=== PATIENT | female | born 1935 | race Caucasian/White ===

== ENCOUNTER 2016-07-24 10:28 | Observation (INO) | payer MEDICARE, OTHER ==
[2016-07-23 09:57] VITALS: BP 138/79
[2016-07-23 10:56] LABS: BLOOD UREA NITROGEN 32 mg/dL (7-18)
[2016-07-23 10:59] LABS: ASPARTATE AMINO TRANSFERASE 16 U/L (15-37)
[~2016-07-24] VITALS: Ht 165.1 cm; Wt 59.3 kg
[~2016-07-24 10:28] MED LIST: APIX5TAB PO; ATOR20TA9 PO; DIGO125T PO; LATA2.5D3 EACHEYE; LEVO100T PO; LEVO75TA PO
[2016-07-24] MEDS ORDERED: FENTANYL PF 100 MCG/2ML ONE (12:08)
[2016-07-24] MEDS ORDERED: MIDAZOLAM 1 MG/ML, 5ML ONE (12:08)
[2016-07-24] MEDS ORDERED: CEFAZOLIN 1,000 MG ONE (12:08)
[2016-07-24] MEDS ORDERED: CEFAZOLIN PMX 1GM/50ML 0 ML ONE (12:08)
[2016-07-24] MEDS ORDERED: LIDOCAINE 2%, 20ML ONE (12:08)
[2016-07-24] MEDS ORDERED: VANCOMYCIN 500 MG ONE (12:11)
[2016-07-24] MEDS ORDERED: VANCOMYCIN PMX 1GM/200ML 200 ML ONE (12:11)
[2016-07-24] MEDS: SODIUM CHLORIDE 0.9% 1,000 ML IV SCH ×2 (15:20→16:35)
[2016-07-24] MEDS ORDERED: HYDROcodone/APAP 5/325 TABLET ONE (15:21)
[2016-07-24] MEDS: HYDROcodone/APAP 5/325 TABLET PO PRN ×3 (15:27→21:40)
[2016-07-24 18:33] VITALS: BP 104/65
[2016-07-24] MEDS ORDERED: LATANOPROST OPHTH 0.005%, 2.5ML OP SCH (21:00)
[2016-07-24] MEDS ORDERED: ATORVASTATIN 20 MG TABLET PO SCH (21:00)
[2016-07-24] MEDS: SODIUM CHLORIDE FLUSH 10ML SYR IVF SCH (21:26)
[2016-07-24] MEDS: APIXABAN 5 MG TABLET PO SCH (21:26)
[2016-07-24] MEDS ORDERED: VANCOMYCIN PMX 1GM/200ML 200 ML IVPB SCH (23:30)
[2016-07-25 01:23] VITALS: BP 146/81
[2016-07-25] MEDS: SODIUM CHLORIDE 0.9% 1,000 ML IV SCH ×2 (01:31→10:51)
[2016-07-25] MEDS ORDERED: LEVOTHYROXINE 75 MCG TABLET PO SCH (06:00)
[2016-07-25] MEDS ORDERED: HYDR-3240 PO (07:58)
[2016-07-25 08:57] VITALS: BP 148/87
[2016-07-25] MEDS ORDERED: DIGOXIN 0.125 MG TABLET PO SCH (09:00)
[2016-07-25] MEDS: SODIUM CHLORIDE FLUSH 10ML SYR IVF SCH (09:11)
[2016-07-25] MEDS: APIXABAN 5 MG TABLET PO SCH (09:12)
[2016-07-27] MEDS ORDERED: LEVOTHYROXINE 100 MCG TABLET PO SCH (06:00)
== END 2016-07-25 12:07 | disposition home or self-care (01) ==
LOC: CACL 10:28 → ORIP 13:56 → 5SO 14:09 → DCLOUNGE 07-25 11:24
PROVIDERS: ADMIT Internal Medicine Cardiovascular Disease; ATTEND Internal Medicine Cardiovascular Disease
DX: I49.5 Sick sinus syndrome (principal); I48.0 Paroxysmal atrial fibrillation; R00.1 Bradycardia, unspecified; E78.5 Hyperlipidemia, unspecified; I10 Essential (primary) hypertension; F17.200 Nicotine dependence, unspecified, uncomplicated
CPT/HCPCS: 33206; 36005; 36415; 71010; 80053; 85025; 85610; 85730; 96365; 99156; 99157; C1779; C1785; C1892; G0378; J2250; J3010; J3370; J3490; Q9967; J0690

== ENCOUNTER → 2019-06-23 | Outpatient (CLI) | payer MEDICARE, OTHER ==
[~2019-06-23] MED LIST changes: +ATOR20TA37 PO; -ATOR20TA9 PO; -DIGO125T PO; +DIGO125T85 PO; +HYDR-3240 PO
== END | disposition home or self-care (01) ==
LOC: CFH 08:27
PROVIDERS: ATTEND Internal Medicine Cardiovascular Disease
DX: I08.0 Rheumatic disorders of both mitral and aortic valves (principal); I48.0 Paroxysmal atrial fibrillation
CPT/HCPCS: 93306